=== PATIENT | male | born 1960 | race Caucasian/White ===

== ENCOUNTER 2016-12-30 22:04 | Inpatient (IN) | payer OTHER ==
[~2016-12-30] VITALS: Ht 160 cm; Wt 99.8 kg
[~2016-12-30 22:04] MED LIST: ALBUTEROL0.09 MG/A2 INH; ALDACTONE 25 MG25 MG PO; ALDACTONE PO; AMOXICILLIN500 MG PO; ASPIR 8181 MG PO; AVAPRO75 MG PO; BUMETANIDE1 MG PO; BUMETANIDE2 MG PO; CARVEDILOL12.5 MG PO; COREG 12.5MG12.5 MG PO; COREG 25 MG TAB25 MG PO; IRBESARTAN75 MG PO; KEFLEX500 M1 PO; KLOR-CON 10MEQ10 MEQ PO; KLOR-CON M2020 MEQ PO; MAGNESIUM OXID400 MG PO; METOLAZONE5 MG PO; OMEPRAZOLE20 MG PO; PERCOCET 325 MG1 TA2 PO; PERCOCET 5-3251 EACH PO; POTASSIUM CHLO20 ME1 PO; SIMVASTATIN40 MG PO; SINGULAIR10 MG PO; TORSEMIDE20 MG PO; ZOFRAN 4 MG TABL4 MG PO; ZOFRAN4 M1 PO
--- NOTE | 2016-12-30 22:16 | NUR ---
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 PT DENIES CP OR SOB PRIOR TO GOING OFF. NO C/O PALPITATIONS. PT STATES HIS LEFT LAT CHEST MUSCLES WERE TWITCHING PRIOR TO EPISODE.
--- NOTE | 2016-12-30 22:31 | ED CARDIAC/CP/PALPITATIONS ---
History of Present Illness General Chief Complaint: General Adult Stated Complaint: DEFIB WENT OFF Source: patient, old records Exam Limitations: no limitations Allergies Coded Allergies: NO KNOWN ALLERGIES (02/25/13) Reconcile Medications Aspirin (Ecotrin*) 81 MG TABLET.DR 1 TAB PO DAILY HEART/BLOOD (Reported) Bumetanide 2 MG TABLET 1 TAB PO BID DIURETIC (Reported) Carvedilol (Coreg) 25 MG TABLET 1 TAB PO BID HEART/BP (Reported) Eplerenone 25 MG TABLET 1 TAB PO DAILY DIURETIC (Reported) Magnesium Oxide (Magnesium) 400 MG TABLET 1 TAB PO DAILY SUPPLEMENT (Reported ) Potassium Chloride (Unknown Strength) TAB.ER.PRT (Unknown Dose) PO DAILY SUPPLEMENT (Reported) Sacubitril/Valsartan (Entresto 49 MG-51 MG Tablet) 49 MG-51 MG TABLET 1 TAB PO TID HEART/BP (Reported) Simvastatin (Zocor*) 40 MG TABLET 1 TAB PO QPM CHOLESTEROL (Reported) Tramadol HCl 50 MG TABLET 1 TAB PO PRN PAIN (Reported) [ZESTRA] 30 MG PO DAILY PSORIATIC ARTHRITIS (Reported) Triage Note: RECEIVED 56 YO MALE WITH AICD C/O DEFIBRILLATOR 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 PT DENIES CP OR SOB PRIOR TO GOING OFF. NO C/O PALPITATIONS. PT STATES HIS LEFT LAT CHEST MUSCLES WERE TWITCHING PRIOR TO EPISODE. Triage Nurses Notes Reviewed? yes Onset: Abrupt Duration: minute(s):, better, resolved prior to arrival Timing: single episode today Quality/Severity: mild, moderate Location: central Radiation: no radiation Activities at Onset: none Associated Symptoms: DENIES HPI: 56-year-old male presents emergency room after he states his defibrillator fired at approximately 9:30 tonight he got up to use the bathroom. The patient denies any prodromal symptoms including dizziness palpitations chest pain shortness of breath. In the past when he was seen here and his defibrillator fired he states he had these symptoms. His agricultural produce washer is Dr. SOTO. The patient denies any symptoms at this time. He is been no recent change in his medications no fever chills nausea vomiting. No other modifying factors or associated symptoms otherwise. No modifying factors or associated symptoms otherwise (RADHA HERNANDEZ,LUCIE) Vital Signs & Intake/Output Vital Signs & Intake/Output Vital Signs Date Time Temp Pulse Resp B/P Pulse O2 O2 Flow FiO2 Ox Delivery Rate 12/31 0034 98.0 82 18 100/68 97 Room Air 12/30 2317 112 96/45 12/30 2212 96.9 122 20 94/68 98 Room Air ED Intake and Output 12/31 0000 12/30 1200 Intake Total Output Total Balance Patient 220 lb Weight Past History Travel History Traveled to [place] past 21 day No Medical History Any Pertinent Medical History? see below for history Neurological: NONE EENT: NONE Cardiovascular: AFIB, CHF, hypertension, AICD/PACEMAKER Respiratory: NONE Gastrointestinal: NONE Hepatic: NONE Renal: NONE Musculoskeletal: fracture, ARTHRITIS Psychiatric: NONE Endocrine: NONE Blood Disorders: NONE Cancer(s): NONE ENERGY MANAGEMENT SPECIALIST/Reproductive: NONE History of MRSA: No History of VRE: No History of CDIFF: No Tetanus Vaccine: 05/20/16 Surgical History Surgical History: DEFIBRILLATOR/PACEMAKER Psychosocial History Who do you live with Brother Services at Home None What is your primary language Croatian Tobacco Use: Quit >30 days ago Family History Family History, If Any: Relation not specified for: FH: coronary artery disease FH: hypertension Hx Contributory? No (LUCIE EDWARDS) Review of Systems Review of Systems Constitutional: Reports: see HPI. All Other Systems: Reviewed and Negative Comments Review of systems: See HPI, All other systems negative. Constitutional, no chills no fever, no malaise HEENT: No visual changes no sore throat no congestion, no ear pain Cardiovascular: No chest pain , no palpitation , no orthopnea no ankle swelling Skin,no rashes, no change in skin Respiratory: No dyspnea no cough no sputum GI: No nausea no vomiting, no diarrhea, : No dysuria Muscle skeletal: No joint pain, no joint swelling, no back pain, no neck pain, Neurologic: No numbness , no headache Psych: No stress Heme/endocrine: No bruising no bleeding Immunology: No lymphadenopathy (LUCIE EDWARDS) Physical Exam Physical Exam General Appearance: well developed/nourished, no apparent distress, alert, awake Cardiovascular: regular rate/rhythm Comments: Well-developed well-nourished person in no acute distress HEENT: Normal EENT exam; PERRL, EOMI. HEAD is atraumatic. moist mucous membranes. Neck: Supple, normal range of motion Back: Nontender, no CVA tenderness. Full range of motion Cardiovascular: Tachycardia, regular rhythm, no murmurs rubs or gallops Respiratory: Chest nontender.There were no bony deformities, no asymmetry. No respiratory distress. Patient speaking in full complete sentences. Breath sounds clear to auscultation bilaterally: NO W/R/R Abdomen: Soft, nontender nondistended, Extremity: No edema, full range of motion of extremities Neuro: Alert oriented x3, motor sensory normal, There were no obvious focal neurologic abnormalities. Skin: No appreciable rash on exposed skin, skin is warm and dry. Psych: Mood and affect is normal, memory and judgment is normal. Core Measures ACS in differential dx? Yes Severe Sepsis Present: No Septic Shock Present: No (RADHA HERNANDEZ,LUCIE) Progress Differential Diagnosis: AMI, aortic dissection, atrial fibrillation, CHF/pulm edema, hyperkalemia, hypovolemia, myocarditis, PSVT, pulmonary embolism, V-fib/V -Tach, ELECTROLYTE ABNORMALITY ARRHYTHMIA Plan of Care: Orders Procedure Date/time Status Admit to inpatient 12/31 0112 Active Patient Data 12/31 0059 Active Telemetry/Charging Car Operator 12/30 222 Active TROPONIN LEVEL 12/30 222 Complete PROTHROMBIN TIME 12/30 2220 Complete MAGNESIUM 12/30 222 Complete COMPREHENSIVE METABOLIC PANEL 12/30 222 Complete CBC WITHOUT DIFFERENTIAL 12/30 222 Complete EKG 12/30 2210 Active Laboratory Tests 12/30/16 2230: Anion Gap 12, Estimated GFR > 60, BUN/Creatinine Ratio 22.0, Glucose 107 H, Calcium 9.5, Magnesium 1.9, Total Bilirubin 0.7, AST 19, ALT 41, Alkaline Phosphatase 96, Troponin I < 0.01, Total Protein 6.2 L, Albumin 3.9, Globulin 2.3, Albumin/Globulin Ratio 1.7, PT 12.3, INR 1.17, CBC w Diff NO MAN DIFF REQ, RBC 5.03, MCV 82.2, MCH 27.8, RDW 15.6 H, MPV 7.4, Gran % 58.4, Lymphocytes % 29.0, Monocytes % 9.7 H, Eosinophils % 2.2, Basophils % 0.7, Absolute Granulocytes 4.2, Absolute Lymphocytes 2.1, Absolute Monocytes 0.7 H, Absolute Eosinophils 0.2, Absolute Basophils 0.1, PUBS MCHC 33.8 Patient noted to be hypotensive on arrival however mentating well, LABS ORDERED, PT IS WITHOUT ANY COMPLAINTS AT THIS TIME, CASE D/W DR ARCHER who agrees with plan 12/30/2016 11:21:59 PMI discussed the case with the [place] signs of it software support representative who will be into the interrogate the defibrillator in approximately 1 hour. The case was discussed with Dr. Hernandez given patient's tachycardia will be medicated with Lopressor 5 mg IV, fluid bolus of 500 mL normal saline 12/31/2016 12:09:00 [place] the 70s to 80s with fluid bolus the Lopressor was held given hypotension The patient's pacer defibrillator was interrogated here showing underlying A. fib rhythm, I discussed with Dr. Hernandez patient will come in to telemetry hospitalist service we will hold off on anticoagulation at this time. (LUCIE EDWARDS) Diagnostic Imaging: Viewed by Me: Radiology Read. Discussed w/RAD: Radiology Read. Radiology Impression: PATIENT: KIMBERLY SKY PRESENT AGE: 56 PATIENT ACCOUNT NO: [id number] : 58 LOCATION: [facility] ORDERING PHYSICIAN: LUCIE HERNANDEZ SERVICE DATE: 12/30/16 EXAM TYPE: RAD - XRY-PORTABLE CHEST XRAY EXAMINATION: CHEST 1 VIEW CLINICAL INFORMATION: Abnormal exam. Defibrillation. COMPARISON: 07/12/2015. TECHNIQUE: An AP view of the chest is provided. FINDINGS: The cardiac silhouette is enlarged, but stable. Pacer leads overlie the right atrium and right ventricle. The mediastinal and hilar contours are unremarkable. There are neither pleural effusions nor pneumothoraces. There are no consolidations. The osseous structures are unremarkable. IMPRESSION: Stable cardiomegaly without evidence of acute airspace disease. DICTATED BY: CARISA MARTINEZ MD DATE/TIME DICTATED:12/30/162257 DOPEMAN:KIM DATE/TIME TRANSCRIBED:12/30/162257 CONFIDENTIAL, DO NOT COPY WITHOUT APPROPRIATE AUTHORIZATION. <Electronically signed in Other Vendor System> SIGNED BY: CARISA MARTINEZ MD 12/30/16 1057 Initial ED EKG: VENTRICULAR PACED AT 100, NO ACUTE st SEGMENT CHANGES NORMAL AXIS Prior EKG: unchanged (07/2015) (LUCIE EDWARDS) Departure Departure Time of Disposition: 49 Disposition: STILL A PATIENT Condition: Stable Clinical Impression Primary Impression: Inappropriate discharge of implantable cardioverter- defibrillator (ICD) Secondary Impressions: Afib Referrals: ALBERTO POST,Zulma LOVE (PCP/Family) Departure Forms: Customer Survey General Discharge Information Admission Note Spoke With: TIERRA GRANGER MD Documentation of Exam: Documentation of any treatments & extenuating circumstances including Concerns Regarding Discharge (functional status, medication knowledge or non-compliance, living conditions, etc.) that warrant an admission rather than observation: cardiology consult, tele monitoring, given aicd discharge premature discharge would be medicall y harmful (LUCIE EDWARDS) PA/ORDER TO DELIVERY SUPERVISOR Co-Sign Statement Statement: ED Attending supervision documentation- [X] I saw and evaluated the patient. I have also reviewed all the pertinent lab results and diagnostic results. I agree with the findings and the plan of care as documented in the PA's/ORDER TO DELIVERY SUPERVISOR's documentation. [] I have reviewed the ED Record and agree with the PA's/ORDER TO DELIVERY SUPERVISOR's documentation. [] Additions or exceptions (if any) to the PAs/ORDER TO DELIVERY SUPERVISOR's note and plan are summarized below: [] (SUZI POST,CHRIST Field) Critical Care Note Critical Care Note Critical Care Time: non-applicable (LUCIE EDWARDS)
--- NOTE | 2016-12-30 22:34 | NUR ---
LABS SENT (BLUE,SST,LAV,SALDIVAR)
[2016-12-30 22:41] LABS: ABSOLUTE BASOPHIL COUNT 0.1 /CUMM (0.0-0.2); ABSOLUTE EOSINOPHIL COUNT 0.2 /CUMM (0.0-0.7); ABSOLUTE GRANULOCYTE CT 4.2 /CUMM (1.4-6.5); ABSOLUTE LYMPH COUNT 2.1 /CUMM (1.2-3.4); ABSOLUTE MONOCYTE COUNT 0.7 /CUMM (0.10-0.60); BASOPHIL % 0.7 % (0.0-2.0); EOSINOPHIL % 2.2 % (0-5); GRANULOCYTE % 58.4 % (42.2-75.2); HEMATOCRIT 41.3 % (42-52); MEAN CORPUSCULAR HGB 27.8 PG (27.0-31.0); MEAN CORPUSCULAR HGB CONC 33.8 G/DL (33.0-37.0); MEAN CORPUSCULAR VOLUME 82.2 FL (80.0-94.0); MEAN PLATELET VOLUME 7.4 FL (7.4-10.4); PLATELET COUNT 194 /CUMM (130-400); RBC DISTRIBUTION WIDTH 15.6 % (11.5-14.5); RED BLOOD CELL CT 5.03 /CUMM (4.70-6.10); WHITE BLOOD CELL COUNT 7.2 /CUMM (4.8-10.8)
[2016-12-30] MEDS ORDERED: BUMETANIDE2 M1 PO (22:42)
[2016-12-30] MEDS ORDERED: ASPIRIN EC81 M1 PO (22:44)
[2016-12-30] MEDS ORDERED: COREG25 M1 PO (22:44)
[2016-12-30] MEDS ORDERED: POTASSIUM CHLO20 ME2 PO (22:45)
[2016-12-30] MEDS ORDERED: ENTRESTO 49 MG1 EACH PO (22:45)
[2016-12-30] MEDS ORDERED: [UNRECOGNIZED DRUG - OTHER] PO (22:52)
[2016-12-30] MEDS ORDERED: ZOCOR40 M1 PO (22:53)
[2016-12-30] MEDS ORDERED: MAGNESIUM400 MG PO (22:53)
[2016-12-30] MEDS ORDERED: TRAMADOL HCL50 M1 PO (22:53)
[2016-12-30 22:54] LABS: PT 12.3 SEC (9.4-12.5)
[2016-12-30] MEDS ORDERED: EPLERENONE25 M1 PO (23:02)
--- NOTE | 2016-12-30 23:03 | RADIOLOGY REPORT ---
EXAMINATION: CHEST 1 VIEW CLINICAL INFORMATION: Abnormal exam. Defibrillation. COMPARISON: 07/12/2015. TECHNIQUE: An AP view of the chest is provided. FINDINGS: The cardiac silhouette is enlarged, but stable. Pacer leads overlie the right atrium and right ventricle. The mediastinal and hilar contours are unremarkable. There are neither pleural effusions nor pneumothoraces. There are no consolidations. The osseous structures are unremarkable. IMPRESSION: Stable cardiomegaly without evidence of acute airspace disease.
--- NOTE | 2016-12-31 00:06 | NUR ---
PT A/O X4. RESP UNLABORED. HR 57 PACED. PT DENIES CP AND SOB. NO APPARENT DISTRESS. WILL CONTINUE TO MONITOR.
--- NOTE | 2016-12-31 01:18 | History & Physical ---
ANTONIO POST,MARILUZ 12/31/16 0117: General Information and HPI MD Statement: I have seen and personally examined KIMBERLY SKY and documented this H&P. The patient is a 56 year old M who presented with a patient stated chief complaint of [reporting defibrillator went off]. Source of Information: patient Exam Limitations: no limitations History of Present Illness: Patient is a pleasant 56-year-old gentleman who has come to the ED after having an episode of his defibrillator going off and around 9:30 pm. Patient reports that he first felt twitching on the left side of the chest followed by a shock in his vision going 'white'. He did not have any palpitation, dizziness, headache, chest pain, shortness of breath. 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 According to the patient this is a second time that his defibrillator went off, first time was in 2014 and before the shock he felt palpitations unlike this time which only was precipitated by twitching of the muscles on the left side of the chest. [facility] interrogated the AICD/pacemaker in the ED before this admission and told the patient that the 'increased rate in the upper chamber of the heart triggered AICD to fire'. Patient regularly follows up every [address] Garcia at [facility]. Last time before he had an echocardiogram done which showed ejection fraction of 30%, improved from 20% in June 2016. 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 self Services at Home: None Primary Language: Mongolian Smoking Status: Former Smoker (stopped after diagnosis of HF) ETOH Use: denies use, stopped after diagnosed with HF Illicit Drug Use: denies illicit drug use, stopped after diagnosis of CHF (1999) Living Will? unknown Functional Ability ADLs Independent: dressing, eating, toileting, bathing. Ambulation: cane IADLs Independent: shopping, housework, finances, food prep, telephone, transportation , medication admin. Review of Systems Review of Systems Constitutional: Denies: chills, diaphoresis, fever, weakness. EENTM: Reports: no symptoms. Cardiovascular: Denies: chest pain, palpitations, peripheral edema, syncope. Respiratory: Denies: cough, short of breath, sputum production. GI: Reports: no symptoms. Genitourinary: Reports: no symptoms. Musculoskeletal: Reports: no symptoms. Skin: Reports: no symptoms. Neurological/Psychological: Reports: no symptoms. Hematologic/Endocrine: Reports: no symptoms. Exam & Diagnostic Data Last 24 Hrs of Vital Signs/I&O Vital Signs Date Time Temp Pulse Resp B/P Pulse O2 O2 Flow FiO2 Ox Delivery Rate 12/31 0509 93 Room Air Room Air 12/31 0508 97.3 78 18 102/78 93 Room Air Room Air 12/31 0355 97.0 87 18 129/66 96 Room Air 12/31 0204 78 20 98/55 96 12/31 0034 98.0 82 18 100/68 97 Room Air 12/30 2317 112 96/45 12/30 2212 96.9 122 20 94/68 98 Room Air Intake & Output 12/31 1600 12/31 0800 12/31 0000 Intake Total 0 Output Total 0 Balance 0 Intake, IV 0 Intake, Oral 0 Output, Urine 0 Patient 99.79 kg 99.79 kg Weight Physical Exam General Appearance Alert, Oriented X3, Cooperative, No Acute Distress Skin scar of pacemaker placement on the left upper chest, skin non erythematous and nontender HEENT Atraumatic, EOMI, Mucous Membr. moist/pink Neck Supple, No JVD Cardiovascular Regular Rate, Normal S1, Normal S2, No Murmurs Lungs Clear to Auscultation, Normal Air Movement Abdomen Normal Bowel Sounds, Soft, No Tenderness Neurological Normal Speech, Normal Tone Extremities No Edema, Normal Pulses, No Tenderness/Swelling, there is skin dryness and scaling on the elbows, related to psoriasis Vascular Pulses Symmetrical Last 24 Hrs of Labs/Aldo: Laboratory Tests 12/30/16 2230: Anion Gap 12, Estimated GFR > 60, BUN/Creatinine Ratio 22.0, Glucose 107 H, Calcium 9.5, Magnesium 1.9, Total Bilirubin 0.7, AST 19, ALT 41, Alkaline Phosphatase 96, Troponin I < 0.01, Total Protein 6.2 L, Albumin 3.9, Globulin 2.3, Albumin/Globulin Ratio 1.7, PT 12.3, INR 1.17, CBC w Diff NO MAN DIFF REQ, RBC 5.03, MCV 82.2, MCH 27.8, RDW 15.6 H, MPV 7.4, Gran % 58.4, Lymphocytes % 29.0, Monocytes % 9.7 H, Eosinophils % 2.2, Basophils % 0.7, Absolute Granulocytes 4.2, Absolute Lymphocytes 2.1, Absolute Monocytes 0.7 H, Absolute Eosinophils 0.2, Absolute Basophils 0.1, PUBS MCHC 33.8 Assessment/Plan Assessment: Patient is a 56 year old gentleman with PMH of PMH of CHF (since 1999 with nonischemic cardiomyopathy possibly of viral etiology, last EF 30% in September 2016), atrial fibrillation, with AICD and pacemaker (placed 4.5 Years ago), gout attacks in the feet, generalized arthritis, psoriatic arthritis who came to the ED after his defibrillator (AICD) went off and gave him a shock. Problem list and plan: Episode of AICD shock with no preceding symptoms except for a muscle twitch on the left side of the chest. according to the interrogation patient went into Vtach with rate of 207 bpm, which has possibly been triggered by the atrial fibrillation and the underlying CHF. Also patient reports recently he was switched back on TID Entresto (recommended dose) from BID to TID (as his hypotension had improved). Patient had low BP on arrival to the ED. It is possible that a lowered BP on the new higher dose of Entresto triggered vtach. * observe on telemetry * monitor vital signs closely especially for hypotension * hold diuretics * cardiology consult CHF with EF of 30% Etiology unknown, possibly a viral infection or illicit drug use, diagnosed in 1999. on Bumetanide (4 mg at night), carvedilol (25 mg BID), eplerenone (25 mg daily), Sacubitril/valsartan (49/51 TID). * continue home meds as instructed, except for diuretics due to Low BP psoriatic arthritis * continue Zestra 30 mg daily CHF diet mild pain pathway Full code As Ranked By This Provider Problem List: 1. Arthritis 2. CONGESTIVE HEART FAILURE 3. Afib 4. AICD discharge 5. Ventricular dysrhythmia Core Measures/Miscellaneous Acute Coronary Syndrome ACS Diagnosis: No Cerebrovascular Accident CVA/TIA Diagnosis: No Congestive Heart Failure CHF Diagnosis: Yes Venous Thromboembolism VTE Risk Factors: Acute medical illness, Age > 40 No [facility] VTE prophylaxis d/t: No contraindications No VTE Pharm Prophylaxis d/t: No contraindications VTE Diagnosis: No VTE Type: NONE VTE Confirmed by (Test): NONE Severe Sepsis Severe Sepsis Present: No Septic Shock Septic Shock Present: No Miscellaneous Documentation Attending Case Discussed With: TIERRA GRANGER MD Primary Care Physician: Zulma DOMINGUEZ MD Patient sees these Specialists Dr. Rehman (direct casting operator) at [facility] and Dr. Carrillo (EP) Level of Patient Care: Telemetry KAYLABLULUCIE 12/31/16 0411: General Information and HPI Allergies/Medications Home Med list Apixaban (Eliquis) 5 MG TABLET 1 TAB PO BID ATRIAL FIBIRILLATION Bumetanide 2 MG TABLET 1 TAB PO BID DIURETIC (Reported) Carvedilol (Coreg) 25 MG TABLET 1 TAB PO BID HEART/BP (Reported) Eplerenone 25 MG TABLET 1 TAB PO DAILY DIURETIC (Reported) Magnesium Oxide (Magnesium) 400 MG TABLET 1 TAB PO DAILY SUPPLEMENT (Reported ) Potassium Chloride (Unknown Strength) TAB.ER.PRT 40 MEQ PO DAILY SUPPLEMENT ( Reported) Sacubitril/Valsartan (Entresto 49 MG-51 MG Tablet) 49 MG-51 MG TABLET 1 TAB PO TID HEART/BP (Reported) Simvastatin (Zocor*) 40 MG TABLET 1 TAB PO QPM CHOLESTEROL (Reported) Tramadol HCl 50 MG TABLET 1 TAB PO PRN PAIN (Reported) [ZESTRA] 30 MG PO DAILY PSORIATIC ARTHRITIS (Reported) Resident Review Statement Resident Statement: examined this patient, discussed with director internal communications, agreed with director internal communications Other Findings: This is a 56 years old gentleman with past medical history significant for hypertension, CHF, non-ischemic cardiomyopathy, osteogenesis imperfecta with reduced ejection fraction last reading per [place] record May 2015 EF of 20- 25% but the patient reports a reading September last year with EF of 30. The patient has been on CHF since year 1999 and has an AICD placement 4-1/2 years ago. He is presenting today after feeling a show from his AICD when he worked up to go to the bathroom. He experienced the same feeling in 2014 and in that admission was found to have deranged electrolytes he did not want to take any chances and decided to come in immediately. Patient denies any dizziness lightheadedness chest pain headache visual changes. Patient reports that he has been taking his medication diligently without any problems. On arrival the patient was afebrile 96.9 tachycardic at 122 respiration of 20 blood pressure 94/68 and saturating 98% on room air. Physical examination: Area around pacer not tender, has multiple psoriatic his skin lesions on the joints, nondistended neck vessels, normal S1-S2 no murmurs, no extremity edema Assessment and plan Patient with significant coronary artery disease low ejection fraction presented with a muscle twitching without any dizziness lightheadedness palpitation or shortness of breath. The device has been interrogated by [facility] and found to show evidence of A. fib with V. tach for which the patient was shocked as he explained. He was slightly hypotensive on arrival and responded well to small bolus of fluid. Place on telemetry observation status Vital signs every shift Restart home medications at their current dose [per [facility] pharmacist they still don't have ENTRESTO] please find out if the patient can bring his home medication and continue to be administered while in the hospital and if this is not possible as with direct casting operator to find out the best alternatives to maintain tranquility. TIERRA GRANGER 12/31/16 0535: Attending MD Review Statement Attending Statement Attending MD Statement: examined this patient, discuss w/resident/PA/SENIOR CLINICAL STUDY MANAGER, agreed w/resident/PA/SENIOR CLINICAL STUDY MANAGER, reviewed EMR data (avail), reviewed images, amended to note Attending Assessment/Plan: CC : ICD shocked PMHx: Nonischemic cardiomyopathy with HFrEF (25- 30%), S/P AICD and pacer, paroxysmal A. fib, gout, psoriasis Patient came to ER after shocking from ICD. patient was going to bathroom when he noticed some muscle twitching followed by shock, he noticed some white out in vision otherwise no gross of consciousness, no chest pain, no palpitations, no dizziness. He came to ER for evaluation. Vitals on arrival patient's blood pressure was 94/68 and tachycardic at 122, A. fib, afebrile, saturating well on room air. On 500 mL bolus patient's blood pressure improved to 100/68, heart rate 80s. On exam: A O 3, cooperative, no acute distress, neck supple, no JVD, no lymphadenopathy, mucosa moist, no focal neurological deficit, no dependent edema , no obvious skin rashes or inflammation CVS: S1-S2 . RS: Clear to auscultate bilaterally, no crackles. Abdomen: Soft, NT, ND, bowel sounds present. Peripheral pulses perfusion normal Labs: Unremarkable, BUN 22 troponin less than 0.01 CXR: Stable cardiomegaly without any airspace disease or vascular congestion A and P #1 ICD shock: Evaluated in ER, ? Probably run of A. fib, then detected V. tach and shock, cardiology informed, place in observation on telemetry for any further events, check magnesium. Trend troponin, serial EKG, and inform cardiology in a.m. patient was hypotensive and tachycardic at presentation, responded to 500 mL bolus, hold diuretic tonight, continue other medications Coreg, Sacubitril/valsartan, simvastatin, watch blood pressure closely. Only change patient mentions is increasing dose of Sacubitril/valsartan from twice a day to 3 times a day.
--- NOTE | 2016-12-31 01:30 | NUR ---
PT UP TO USE URINAL.
--- NOTE | 2016-12-31 02:03 | NUR ---
PT A/O X4. RESP UNLABORED. HR 71 PACED. SKIN WARM AND DRY. PT DENIES CP AND SOB. WILL CONTINUE TO MONITOR.
--- NOTE | 2016-12-31 02:46 | NUR ---
PT MOVED INTO HOSPITAL BED
--- NOTE | 2016-12-31 03:30 | NUR ---
PT SLEEPING. EASILY AROUSED TO VERBAL STIMULATON. RESP UNLABORED. HR 81 PACED. SKIN WARM AND DRY. WILL CONTINUE TO MONITOR
--- NOTE | 2016-12-31 03:33 | NUR ---
PT'S ASSIGNMENT 107
[2016-12-31 05:08] VITALS: BP 102/78
--- NOTE | 2016-12-31 06:19 | NUR ---
RECIEVED PT FROM ER TELE HOLD. PT A/OX3 LCW PACER. PACED ON MONITOR 70. VSS. RA, DENIES CHEST PAIN, SOB. PER MD MAXWELL, NO LABS IN A.M. AND PT MAY EAT. PT INDEPENDENT WITH CANE. CALL ARCHER WITHIN REACH.
--- NOTE | 2016-12-31 08:49 | PN- Housestaff ---
See Addendum Subjective Follow-up For: 1.Episode of AICD shock 2.CHF with EF of 30% 3.Psoriatic arthritis Subjective: I have seen and examined the patient today morning. He is doing fine, was eating his breakfast today mrorning. He was c/o mild soreness in his left arm and slightly in his chest,otherwise fine. Telemetry events - lashawn upto 37 and tachy upto 172 over 24 hours,average HR around 50,with PVC's Vitals stable, afebrile. Review of Systems Constitutional: Reports: see HPI. Objective Last 24 Hrs of Vital Signs/I&O Vital Signs Date Time Temp Pulse Resp B/P Pulse O2 O2 Flow FiO2 Ox Delivery Rate 12/31 0509 93 Room Air Room Air 12/31 0508 97.3 78 18 102/78 93 Room Air Room Air 12/31 0355 97.0 87 18 129/66 96 Room Air 12/31 0204 78 20 98/55 96 12/31 0034 98.0 82 18 100/68 97 Room Air 12/30 2317 112 96/45 12/30 2212 96.9 122 20 94/68 98 Room Air Intake & Output 12/31 1600 12/31 0800 12/31 0000 Intake Total 0 Output Total 0 Balance 0 Intake, IV 0 Intake, Oral 0 Output, Urine 0 Patient 99.79 kg 99.79 kg Weight Physical Exam General Appearance: Alert, Oriented X3, Cooperative, No Acute Distress Skin: No Rashes, No Breakdown HEENT: Atraumatic, PERRLA, EOMI Neck: Supple, No JVD Cardiovascular: Normal S1, Normal S2 Lungs: Clear to Auscultation, Normal Air Movement Abdomen: Normal Bowel Sounds, Soft, No Tenderness Neurological: Normal Speech, Normal Tone Extremities: No Clubbing, No Cyanosis, No Edema, Normal Pulses Vascular: Normal Pulses Current Medications: Current Medications Sig/Raisa Start time Last Medication Dose Route Stop Time Status Admin Aspirin Buffered 81 MG DAILY 12/31 1000 AC PO Atorvastatin Calcium 20 MG 1700 12/31 1700 AC PO Bumetanide 2 MG BID 12/31 1000 AC PO Carvedilol 25 MG BID 12/31 1000 AC PO Magnesium Oxide 400 MG DAILY 12/31 1000 AC PO Metoprolol Tartrate 5 MG ONCE ONE 12/30 2314 DC IV 12/31 2315 Metoprolol Tartrate 0 .STK-MED ONE 12/309 DC IV Non-Formulary 0 SEE ADMIN CRITERIA 12/31 0345 CAN Medication ANY Non-Formulary 0 SEE ADMIN CRITERIA 12/31 0345 CAN Medication ANY Non-Formulary 0 SEE ADMIN CRITERIA 12/31 0345 CAN Medication ANY Potassium Chloride 40 MEQ DAILY 12/31 1000 AC PO Sodium Chloride 500 ML BOLUS ONE 12/30 2315 DC 12/30 IV 12/31 0014 2317 Last 24 Hrs of Lab/Aldo Results Last 24 Hrs of Labs/Mics: Laboratory Tests 12/30/160: Anion Gap 12, Estimated GFR > 60, BUN/Creatinine Ratio 22.0, Glucose 107 H, Calcium 9.5, Magnesium 1.9, Total Bilirubin 0.7, AST 19, ALT 41, Alkaline Phosphatase 96, Troponin I < 0.01, Total Protein 6.2 L, Albumin 3.9, Globulin 2.3, Albumin/Globulin Ratio 1.7, PT 12.3, INR 1.17, CBC w Diff NO MAN DIFF REQ, RBC 5.03, MCV 82.2, MCH 27.8, RDW 15.6 H, MPV 7.4, Gran % 58.4, Lymphocytes % 29.0, Monocytes % 9.7 H, Eosinophils % 2.2, Basophils % 0.7, Absolute Granulocytes 4.2, Absolute Lymphocytes 2.1, Absolute Monocytes 0.7 H, Absolute Eosinophils 0.2, Absolute Basophils 0.1, PUBS MCHC 33.8 Lines/Diet/Fluids Restraints: none Assessment/Plan Assessment: Mr. Xiong is a 56 year old gentleman with PMH of PMH of CHF (since 1999 with nonischemic cardiomyopathy possibly of viral etiology, last EF 30% in September 2016), atrial fibrillation, with AICD and pacemaker (placed 4.5 Years ago), gout attacks in the feet, generalized arthritis, psoriatic arthritis who came to the ED after his defibrillator (AICD) went off and gave him a shock. Problem list and plan: 1. Episode of AICD shock * Admitted last night for AICD Shock * cardiology consult appreciated. * Device interrogated, apprentlyt it appeared that he had an episode of atrial fibrillation with rapid response which was attempted to be treated with pacing therapy by the device, which was unsuccessful and then he underwent a shock which appeared to convert him back to sinus rhythm. * As per Dr heath, he might need to put put on detention AC for a fib. * Will start eliquid 5 mg BID * He will not need any aspirin and will holg it. * Continue all other hoem medications as beforem no changes. * continue to observe on telemetry * monitor vital signs closely * hold diuretics while here, resuem on d/c * Patient stabel for discharge latter today. 2.CHF with EF of 30% * Etiology unknown, possibly a viral infection or illicit drug use, diagnosed in 1999. on Bumetanide (4 mg at night), carvedilol (25 mg BID), eplerenone (25 mg daily), Sacubitril/valsartan (49/51 TID). * continue home meds as instructed on discharge. 3.Psoriatic arthritis * continue Zestra 30 mg daily CHF diet mild pain pathway FC Problem List: 1. Inappropriate discharge of implantable cardioverter-defibrillator (ICD) 2. Afib Pain Ratin Pain Location: chest and arm Pain Goal: Remain pain free Pain Plan: tyelnol Tomorrow's Labs & Rationales: not needed Discharge Plan Discharge Disposition: home Stable for Discharge? Yes Anticipated Discharge (Day): today If Discharged Today/In 24 Hrs: enter [facility] discharge ord, DC summary done, CMR done
--- NOTE | 2016-12-31 10:39 | Cons- Cardiology ---
General Information and HPI Consulting Request Date of Consult: 12/31/16 Requested By: TIERRA GRANGER MD Reason for Consult: Defibrillator discharge Source of Information: patient, old records Exam Limitations: no limitations History of Present Illness: The patient is a 56-year-old man with nonischemic cardiomyopathy with defibrillator in place. The patient had a previous shock 2 years ago possibly due to atrial fibrillation. Last evening the patient had another shock and came to the emergency room. He did not lose consciousness or have any premonitory symptoms prior to the shock. In the emergency department his defibrillator was interrogated. It appears that he had an episode of atrial fibrillation with rapid response which was attempted to be treated with anti-tachycardia pacing therapy by the device, which was unsuccessful, and then he underwent a shock which appeared to convert him back to sinus rhythm. He appears to be in sinus rhythm with atrial sensing and ventricular pacing overnight. He is feeling fine today. He has no complaints of chest pain, shortness of breath, palpitations, dizziness. He is back on his usual medications. He is on carvedilol for beta anila as well as Entresto and diuretics. Allergies/Medications Allergies: Coded Allergies: NO KNOWN ALLERGIES (02/25/13) Home Med List: Apixaban (Eliquis) 5 MG TABLET 1 TAB PO BID ATRIAL FIBIRILLATION Bumetanide 2 MG TABLET 1 TAB PO BID DIURETIC (Reported) Carvedilol (Coreg) 25 MG TABLET 1 TAB PO BID HEART/BP (Reported) Eplerenone 25 MG TABLET 1 TAB PO DAILY DIURETIC (Reported) Magnesium Oxide (Magnesium) 400 MG TABLET 1 TAB PO DAILY SUPPLEMENT (Reported ) Potassium Chloride (Unknown Strength) TAB.ER.PRT 40 MEQ PO DAILY SUPPLEMENT ( Reported) Sacubitril/Valsartan (Entresto 49 MG-51 MG Tablet) 49 MG-51 MG TABLET 1 TAB PO TID HEART/BP (Reported) Simvastatin (Zocor*) 40 MG TABLET 1 TAB PO QPM CHOLESTEROL (Reported) Tramadol HCl 50 MG TABLET 1 TAB PO PRN PAIN (Reported) [ZESTRA] 30 MG PO DAILY PSORIATIC ARTHRITIS (Reported) Current Medications: Current Medications Sig/Raisa Start time Last Medication Dose Route Stop Time Status Admin Aspirin Buffered 81 MG DAILY 12/31 1000 AC 12/31 PO 1019 Atorvastatin Calcium 20 MG 1700 12/31 1700 AC PO Bumetanide 2 MG BID 12/31 1000 AC 12/31 PO 1019 Carvedilol 25 MG BID 12/31 1000 AC 12/31 PO 1019 Magnesium Oxide 400 MG DAILY 12/31 1000 AC 12/31 PO 1020 Metoprolol Tartrate 5 MG ONCE ONE 12/30 2315 DC IV 12/30 231 Metoprolol Tartrate 0 .STK-MED ONE 12/30 2309 DC IV Non-Formulary 0 SEE ADMIN CRITERIA 12/31 034 CAN Medication ANY Non-Formulary 0 SEE ADMIN CRITERIA 12/31 0345 CAN Medication ANY Non-Formulary 0 SEE ADMIN CRITERIA 12/31 0345 CAN Medication ANY Potassium Chloride 40 MEQ DAILY 12/31 1000 AC 12/31 PO 1019 Sodium Chloride 500 ML BOLUS ONE 12/305 DC 12/30 IV 12/31 0014 2317 Review of Systems Review of Systems: He has no other complaints in the review of systems. Past History Travel History Traveled to [place] past 21 day No Medical History Blood Transfusion Hx: No Neurological: NONE EENT: NONE Cardiovascular: AFIB, CHF, hypertension, AICD/PACEMAKER Respiratory: NONE Gastrointestinal: NONE Hepatic: NONE Renal: NONE Musculoskeletal: fracture, gout, ARTHRITIS Psychiatric: NONE Endocrine: NONE Blood Disorders: NONE Cancer(s): NONE SENIOR COMMISSIONS ANALYST/Reproductive: NONE Surgical History Surgical History: DEFIBRILLATOR/PACEMAKER Family History Relations & Conditions If Any: FATHER FH: coronary artery disease MOTHER FH: stroke Psychosocial History Where Do You Live? Home Who Do You Live With? self Services at Home: None Primary Language: Ethiopian Smoking Status: Former Smoker (stopped after diagnosis of HF) ETOH Use: denies use, stopped after diagnosed with HF Illicit Drug Use: denies illicit drug use, stopped after diagnosis of CHF (1999) Living Will? unknown Functional Ability ADLs Independent: dressing, eating, toileting, bathing. Ambulation: cane IADLs Independent: shopping, housework, finances, food prep, telephone, transportation , medication admin. Exam & Diagnostic Data Vital Signs and I&O Vital Signs Date Time Temp Pulse Resp B/P Pulse O2 O2 Flow FiO2 Ox Delivery Rate 12/31 0509 93 Room Air Room Air 12/31 0508 97.3 78 18 102/78 93 Room Air Room Air 12/31 0355 97.0 87 18 129/66 96 Room Air 12/31 0204 78 20 98/55 96 12/31 0034 98.0 82 18 100/68 97 Room Air 12/30 2317 112 96/45 12/302 96.9 122 20 94/68 98 Room Air Intake & Output 12/31 0000 12/30 0000 Intake Total 0 Output Total 0 Balance 0 Intake, IV 0 Intake, Oral 0 Output, Urine 0 Patient 220 lb 220 lb Weight Physical Exam: He is a pleasant middle-aged overweight male in no acute distress HEENT exam is normal Neck veins not distended Carotids normal Chest is clear Heart regular rhythm, soft heart sounds, no murmur. Defibrillator in place in left upper anterior chest wall. Extremities no edema Labs/Aldo Results: Laboratory Tests 12/30 2229 Chemistry Sodium (137 - 145 mmol/L) 137 Potassium (3.5 - 5.1 mmol/L) 3.8 Chloride (98 - 107 mmol/L) 101 Carbon Dioxide (22 - 30 mmol/L) 25 Anion Gap (5 - 16) 12 BUN (9 - 20 mg/dL) 22 H Creatinine (0.7 - 1.2 mg/dL) 1.0 Estimated GFR (>60 ml/min) > 60 BUN/Creatinine Ratio (7 - 25 %) 22.0 Glucose (65 - 99 mg/dL) 107 H Calcium (8.4 - 10.2 mg/dL) 9.5 Magnesium (1.6 - 2.3 mg/dL) 1.9 Total Bilirubin (0.2 - 1.3 mg/dL) 0.7 AST (17 - 59 U/L) 19 ALT (21 - 72 U/L) 41 Alkaline Phosphatase (< 127 U/L) 96 Troponin I (<0.11 ng/ml) < 0.01 Total Protein (6.3 - 8.2 g/dL) 6.2 L Albumin (3.5 - 5.0 g/dL) 3.9 Globulin (1.9 - 4.2 gm/dL) 2.3 Albumin/Globulin Ratio (1.1 - 2.2 %) 1.7 Coagulation PT (9.4 - 12.5 SEC) 12.3 INR (0.90 - 1.17) 1.17 Hematology CBC w Diff NO MAN DIFF REQ WBC (4.8 - 10.8 /CUMM) 7.2 RBC (4.70 - 6.10 /CUMM) 5.03 Hgb (14.0 - 18.0 G/DL) 14.0 Hct (42 - 52 %) 41.3 L MCV (80.0 - 94.0 FL) 82.2 MCH (27.0 - 31.0 PG) 27.8 RDW (11.5 - 14.5 %) 15.6 H Plt Count (130 - 400 /CUMM) 194 MPV (7.4 - 10.4 FL) 7.4 Gran % (42.2 - 75.2 %) 58.4 Lymphocytes % (20.5 - 51.1 %) 29.0 Monocytes % (1.7 - 9.3 %) 9.7 H Eosinophils % (0 - 5 %) 2.2 Basophils % (0.0 - 2.0 %) 0.7 Absolute Granulocytes (1.4 - 6.5 /CUMM) 4.2 Absolute Lymphocytes (1.2 - 3.4 /CUMM) 2.1 Absolute Monocytes (0.10 - 0.60 /CUMM) 0.7 H Absolute Eosinophils (0.0 - 0.7 /CUMM) 0.2 Absolute Basophils (0.0 - 0.2 /CUMM) 0.1 PUBS MCHC (33.0 - 37.0 G/DL) 33.8 Diagnostic Data EKG Results EKG shows sinus tachycardia rate of 119 with atrial sensing and ventricular pacing. CXR Results PATIENT: KIMBERLY SKY PRESENT AGE: 56 PATIENT ACCOUNT NO: [id number] : 58 LOCATION: [facility] ORDERING PHYSICIAN: LUICE HERNANDEZ SERVICE DATE: 12/30/16 EXAM TYPE: RAD - XRY-PORTABLE CHEST XRAY EXAMINATION: CHEST 1 VIEW CLINICAL INFORMATION: Abnormal exam. Defibrillation. COMPARISON: 07/12/2015. TECHNIQUE: An AP view of the chest is provided. FINDINGS: The cardiac silhouette is enlarged, but stable. Pacer leads overlie the right atrium and right ventricle. The mediastinal and hilar contours are unremarkable. There are neither pleural effusions nor pneumothoraces. There are no consolidations. The osseous structures are unremarkable. IMPRESSION: Stable cardiomegaly without evidence of acute airspace disease. DICTATED BY: CARISA MARTINEZ MD DATE/TIME DICTATED:12/30/162257 PUNCH BOX TENDER:KIM DATE/TIME TRANSCRIBED:12/30/162257 CONFIDENTIAL, DO NOT COPY WITHOUT APPROPRIATE AUTHORIZATION. <Electronically signed in Other Vendor System> SIGNED BY: CARISA MARTINEZ MD 12/30/16 0117 Assessment/Plan Assessment/Plan This patient underwent a defibrillator shock, apparently due to atrial fibrillation with rapid ventricular response. This is despite the fact that he is on a beta anila. The shock appears to have converted him back to sinus rhythm which he remains in. He is otherwise stable. He is not in clinical congestive heart failure and his chest x-ray does not show any congestive heart failure. He has remained in sinus rhythm overnight. I think the patient can be discharged. I would recommend starting him on Eliquis for anticoagulation because of the paroxysmal atrial fibrillation. I would continue him on his other regular medications and he can follow-up with his usual communications controller, infirmary attendant and heart failure specialist. Copies To: ARTURO POST,CAROLIN; BRITTANY POST,SEBASTIEN Andrade; YOAV POST,CEE Consult Acknowledgment - Thank you for your consult request.
[2016-12-31] MEDS ORDERED: ELIQUIS5 M1 PO (11:09)
--- NOTE | 2016-12-31 11:12 | Patient Discharge Instructions ---
Discharge Instructions General Discharge Information You were seen/treated for: S/P AICD SHOCK Special Instructions: Continue to follow up with your plate slitter and inspector, heart surgeon at after the discharge. Please note that blood thinner has been admitted as a new medication because of abnormal rhythm of atrial fibrillation. Please continue to take the blood thinner Eliquis 5 mg twice a day. Please continue to take rest of the medications as before. Also note that we have stopped the aspirin as per cardiology as the mass is no longer needed, we will start Eliquis 5 mg twice a day. Continue to follow up with their primary care within 1 week of discharge. Diet Continue normal diet: No Recommended Diet: Heart Healthy Activity Full Activity/No Limits: No Activity Self Limited: Yes Acute Coronary Syndrome Inclusion Criteria At DC or during hospital stay patient has or had the following: ACS DIAGNOSIS No Discharge Core Measures Meds if any: Prescribed or Continued at Discharge Meds if any: NOT Prescribed or Continued at Discharge Congestive Heart Failure Inclusion Criteria At DC or during hospital stay patient has or had the following: CHF DIAGNOSIS No Discharge Core Measures Meds if any: Prescribed or Continued at Discharge Meds if any: NOT Prescribed or Continued at Discharge Cerebrovascular accident Inclusion Criteria At DC or during hospital stay patient has or had the following: CVA/TIA Diagnosis No Discharge Core Measures Meds if any: Prescribed or Continued at Discharge Meds if any: NOT Prescribed or Continued at Discharge Venous thromboembolism Inclusion Criteria VTE Diagnosis No VTE Type NONE VTE Confirmed by (Test) NONE Discharge Core Measures - Per Current guidelines, there needs to be overlap - treatment for the first 5 days of Warfarin therapy. - If discharged on Warfarin prior to 5 days of - overlap therapy, the patient will need to be - assessed for post discharge needs including - *Post discharge parental anticoagulation - *Warfarin and/or parental anticoagulation education - *Follow up date to check INR post discharge At least 5 days overlap therapy as Inpatient No Meds if any: Prescribed or Continued at Discharge Note: Overlap Therapy is Warfarin and Anticoagulant Meds if any: NOT Prescribed or Continued at Discharge
--- NOTE | 2016-12-31 11:28 | Event Note ---
Event Note Event Note: Brief : change in medications, starting Eliquis Situation : * Mr. Xiong came in at this admission YDAY 12/30/16 after having his defibrillator discharge 11/03 to Atrial fibrillation, his previous shock 2 years ago was also due to Atrial fibrillation. * As per device interrogatino, it appeared that he had an episode of atrial fibrillation with rapid response which was attempted to be treated with pacing therapy by the device, which was unsuccessful and then he underwent a shock which appeared to convert him back to sinus rhythm. * As per cardiology Dr. Hernandez who is covering today, we think that he needs to be anticoagulated for A fib in addition to having the AICD. Plan : * We will start him on eliquis BID for AC for A fibrillation. * Will d/c aspirin, as he doesnt need it after starting the eliquis. * Rest of medications remains same.
--- NOTE | 2017-01-10 15:11 | Discharge Summary ---
Visit Information Visit Dates Admission Date: 12/31/16 Discharge Date: 12/31/16 Hospital Course Course Attending Physician: DANIELITO LACKEY MD Primary Care Physician: Zulma DOMINGUEZ MD [facility] Course: Mr. Marte is a 56 year old gentleman with PMH of PMH of CHF (since 1999 with nonischemic cardiomyopathy possibly of viral etiology, last EF 30% in September 2016), atrial fibrillation, with AICD and pacemaker (placed 4.5 Years ago), gout attacks in the feet, generalized arthritis, psoriatic arthritis who came to the ED after his defibrillator (AICD) went off and gave him a shock.On presentation - Patient reported that he first felt twitching on the left side of the chest followed by a shock in his vision going 'white'. He did not have any palpitation, dizziness, headache, chest pain, shortness of breath. Vitals on arrival patient's blood pressure was 94/68 and tachycardic at 122, A. fib, afebrile, saturating well on room air. On 500 mL bolus patient's blood pressure improved to 100/68, heart rate 80s. Physical exam On presentation: AO 3, cooperative, no acute distress, neck supple, no JVD, no lymphadenopathy, mucosa moist, no focal neurological deficit, no dependent edema, no obvious skin rashes or inflammation CVS: S1-S2 . RS: Clear to auscultate bilaterally, no crackles. Abdomen: Soft, NT, ND, bowel sounds present. Peripheral pulses perfusion normal Labs: Unremarkable, BUN 22 troponin less than 0.01 CXR: Stable cardiomegaly without any airspace disease or vascular congestion Problem list and plan: 1. Episode of AICD shock * Patient was admitted in tele for further evaluation.Cardiology was consulted. * Device was interrogated, apprently it appeared that he had an episode of atrial fibrillation with rapid response which was attempted to be treated with pacing therapy by the device, which was unsuccessful and then he underwent a shock which appeared to convert him back to sinus rhythm. * As per Dr heath, he might need to put on intermediate frame tender AC for a fib. * Patient was newly started on eliquis 5 mg BID * He will not need any aspirin and will hold it. * all other home meds were continued without change. * Diuretics were held while in patient and resumed on discharge.Mr marte was d /c the next day. 2.CHF with EF of 30% * Etiology unknown, possibly a viral infection or illicit drug use, diagnosed in 1999. on Bumetanide (4 mg at night), carvedilol (25 mg BID), eplerenone (25 mg daily), Sacubitril/valsartan (49/51 TID). * He was continued on home meds as instructed on discharge. 3.Psoriatic arthritis * He was continued Zestra 30 mg daily CHF diet mild pain pathway FC Allergies: Coded Allergies: NO KNOWN ALLERGIES (02/25/13) Significant Procedures: SERVICE DATE: 12/30/16 EXAM TYPE: RAD - XRY-PORTABLE CHEST XRAY EXAMINATION: CHEST 1 VIEW CLINICAL INFORMATION: Abnormal exam. Defibrillation. COMPARISON: 07/12/2015. TECHNIQUE: An AP view of the chest is provided. FINDINGS: The cardiac silhouette is enlarged, but stable. Pacer leads overlie the right atrium and right ventricle. The mediastinal and hilar contours are unremarkable. There are neither pleural effusions nor pneumothoraces. There are no consolidations. The osseous structures are unremarkable. IMPRESSION: Stable cardiomegaly without evidence of acute airspace disease. Disposition Summary Disposition Principal Diagnosis: 1. defibrillator shock, apparently due to atrial fibrillation with rapid ventricular response Additional Diagnosis: 2.CHF with EF of 30% 3.Psoriatic arthritis Discharge Disposition: home or self care Discharge Instructions General Discharge Information Code Status: Full Code Patient's Diet: CHF diet Patient's Activity: As tolerated Follow-Up Instructions/Appts: please follow up with your staff radiologist and pcp within one week of discharge. please continue takign your blood thinners which are started newly at this admission. please be very regular with taking blood thinners. Medications at Discharge Discharge Medications: Stop taking the following medications: Aspirin (Ecotrin*) 81 MG TABLET.DR ORAL DAILY Continue taking these medications: Bumetanide (Bumetanide) 2 MG TABLET 1 Tablet ORAL TWICE DAILY Comments: Last Taken: 12/31/16 Time: 1000 Carvedilol (Coreg) 25 MG TABLET 1 Tablet ORAL TWICE DAILY Comments: Last Taken: 12/31/16 Time: 1000 Sacubitril/Valsartan (Entresto 49 MG-51 MG Tablet) 49 MG-51 MG TABLET 1 Tablet ORAL THREE TIMES DAILY Comments: Last Taken: NOT GIVEN IN HOSPITAL Time: Potassium Chloride (Potassium Chloride) (Unknown Strength) TAB.ER.PRT 40 Millequivalent ORAL DAILY Comments: Last Taken: 12/31/16 Time: 1000 [ZESTRA] 30 Milligram ORAL DAILY Comments: Last Taken: NOT GIVEN IN HOSPITAL Time: Magnesium Oxide (Magnesium) 400 MG TABLET 1 Tablet ORAL DAILY Comments: Last Taken: 12/31/16 Time: 1000 Simvastatin (Zocor*) 40 MG TABLET 1 Tablet ORAL Every night Comments: Last Taken: 12/30/16 Time: 1700 Tramadol HCl (Tramadol HCl) 50 MG TABLET 1 Tablet ORAL as needed for PAIN Comments: Last Taken: NOT GIVEN IN HOSPITAL Time: Eplerenone (Eplerenone) 25 MG TABLET 1 Tablet ORAL DAILY Comments: Last Taken: NOT GIVEN IN HOSPITAL Time: Start taking the following new medications: Apixaban (Eliquis) 5 MG TABLET 1 Tablet ORAL TWICE DAILY Qty = 60 No Refills Copies To: MARCI POST,JULIO CÉSAR Sky Attending Review Statement Documenting Attending: DANIELITO LACKEY MD
== END 2016-12-31 13:30 | DRG 315 ==
LOC: ENRESERVDT → ENRESERVTM → ERH 22:04 → CRI 12-31 01:12 → ERHI 12-31 01:12 → CRI 12-31 05:08
PROVIDERS: Physician Assistant Medical; ADMIT Internal Medicine
PROC: 4B02XTZ Measurement of Cardiac Defibrillator, External Approach (ICD-10-PCS; principal; 2016-12-31)
DX: T82.118A Breakdown (mechanical) of other cardiac electronic device, initial encounter (principal); I42.9 Cardiomyopathy, unspecified; I50.9 Heart failure, unspecified; L40.50 Arthropathic psoriasis, unspecified; I48.0 Paroxysmal atrial fibrillation; M10.9 Gout, unspecified; Z87.891 Personal history of nicotine dependence
CPT/HCPCS: CCU; 93005; 93010